=== PATIENT | female | born 1975 | race Caucasian/White ===

== ENCOUNTER 2017-08-26 17:24 | Emergency (ER) | payer OTHER ==
[2017-08-26] MEDS ORDERED: ORPHENADRINE CITRATE 60 MG/2ML IV ONE (17:39)
[2017-08-26] MEDS ORDERED: PROMETHAZINE HCL 25 MG in 0.9 % SODIUM CHLORIDE 50 ML IV ONE (17:39)
[2017-08-26] MEDS ORDERED: diphenhydrAMINE HCL 50 MG/ML VIAL IVP ONE ×2 (17:39→18:32)
[2017-08-26] MEDS ORDERED: KETOROLAC TROMETHAMINE 30 MG/1ML VIAL IVP ONE (17:39)
[2017-08-26] MEDS ORDERED: 0.9 % SODIUM CHLORIDE 1,000 ML IV ONE (17:40)
[2017-08-26] MEDS ORDERED: PROMETHAZINE HCL 25 MG/ML VIAL ONE (17:51)
--- NOTE | 2017-08-26 17:51 | ED Physician Documentation ---
Headache - HISTORIAN Historian: patient - HPI Stated Complaint: headache Chief Complaint: Headache - ROS NEURO/PSYCH: denies: confusion all systems neg except as marked: Yes - PAST HX Medical History: migraines - SOCIAL HX Smoking History: non-smoker Alcohol Use: none Drug Use: none - Family HX Family History: other (no significant) - REVIEWED ASSESSMENTS Nursing Assessment Reviewed: Yes Vitals Reviewed: Yes <DOC MARCELINO - Last Filed: 08/26/17 19:11> <Hunter Birmingham - Last Filed: 08/26/17 19:50> - HPI Additional Information: Typical TAM for her began at 0630 today. Has throbbing pain left side of head, photosensitivity, nausea and vomiting. She is out of sumatriptan. Took naprosyn once today w/o relief. No other modifying factors or associated signs. (DOC MARCELINO) - PAST HX Allergies/Adverse Reactions: Allergies Allergy/AdvReac Type Severity Reaction Status Date / Time acetaminophen [From Percocet] Allergy Mild Vomiting Verified 08/26/17 17:38 oxycodone HCl [From Percocet] Allergy Mild Vomiting Verified 08/26/17 17:38 Home Medications: Ambulatory Orders Medication Instructions Recorded Loratadine [Claritin] 5 mg PO DAILY 12/27/12 Sumatriptan [Sumatriptan] 500 mg PO DIRECTED 03/08/16 - VITAL SIGNS Vital Signs: Vital Signs Temp Pulse Resp BP Pulse Ox 98.3 F 80 16 149/87 98 08/26/17 17:24 08/26/17 17:24 08/26/17 17:24 08/26/17 17:24 08/26/17 17:24 Progress <DOC MARCELINO - Last Filed: 08/26/17 19:11> <Hunter Birmingham - Last Filed: 08/26/17 19:50> - Results/Orders Results/Orders: h/a resolved"much better-ready to go home" (Hunter Birmingham) - Progress Progress: 1899, care to Dr. Birmingham (DOC MARCELINO) - Orders Orders: ED Orders Category Date Time Status Place IV Lock 1T Care 08/26/17 17:39 Active 0.9 % Sodium Chloride [Normal Saline] 1,000 ml Med 08/26/17 17:40 Discontinued IV Q1H 0.9 % Sodium Chloride [Sodium Chloride] 100 ml Med 08/26/17 17:52 Discontinued IV .STK-MED Ketorolac Tromethamine [Toradol] Med 08/26/17 17:39 Discontinued 30 mg IVP NOW ONE Ondansetron HCl/Pf [Zofran 4 mg/2 ml] Med 08/26/17 18:32 Discontinued 4 mg IVP NOW ONE Orphenadrine Citrate [Norflex] Med 08/26/17 17:39 Discontinued 60 mg IV NOW ONE Promethazine HCl [Phenergan] Med 08/26/17 17:51 Discontinued 25 mg .ROUTE .STK-MED ONE Promethazine HCl [Phenergan] 25 mg Med 08/26/17 17:39 Discontinued 0.9 % Sodium Chloride [Sodium Chloride] 50 ml IV NOW diphenhydrAMINE HCL [Benadryl] Med 08/26/17 17:39 Discontinued 25 mg IVP NOW ONE diphenhydrAMINE HCL [Benadryl] Med 08/26/17 18:32 Discontinued 25 mg IVP NOW ONE Headache Physical Exam - EXAM General Appearance: alert, moderate distress EENT: no facial swelling, eyes nml inspection, PERRL Neck: normal inspection, supple Respiratory: breath sounds normal CVS: reg. rate & rhythm, heart sounds nml Abdomen: nml bowel sounds Skin: color nml, no rash Extremitites: normal range of motion (gait and stance), no evidence of injury - NEURO/PSYCH Higher Functions: alert, nml speech, mood/affect nml Cranial: nml as tested Cerebellar: nml as tested Sensorimotor: motor nml, sensation nml <DOC MARCELINO - Last Filed: 08/26/17 19:11> Discharge <DOC MARCELINO - Last Filed: 08/26/17 19:11> Decision to Admit: NO Decision Time: 19:50 <Hunter Birmingham - Last Filed: 08/26/17 19:50> Clincal Impression: migraine cephalgia Referrals: Moncho Garcia MD [Primary Care Provider] - 2 Days Comments: much better - home (Hunter Birmingham) Condition: Good Disposition: 01 HOME, SELF-CARE
[2017-08-26] MEDS ORDERED: 0.9 % SODIUM CHLORIDE 100 ML IV ONE (17:52)
[2017-08-26] MEDS ORDERED: ONDANSETRON HCL/PF 4 MG/ 2ML VIAL IVP ONE (18:32)
[2017-08-26 20:31] VITALS: BP 147/64
== END 2017-08-26 20:15 | disposition home or self-care (01) ==
LOC: ED 17:24
DX: G43.909 Migraine, unspecified, not intractable, without status migrainosus (principal)
CPT/HCPCS: J1200; J1885; J2360; J2405; J2550; J7030; 96365; 96368; 96375; 99283; S1016